=== PATIENT | female | born 1945 | race Caucasian/White ===

== ENCOUNTER 2017-02-16 23:22 | Inpatient (IN) | payer OTHER, MEDICAID ==
[~2017-02-16] VITALS: Ht 157.5 cm; Wt 77.1 kg
--- NOTE | 2017-02-16 23:38 | NUR ---
PT BIB GRANDDAUGHTER FOR C/O HEADACHE, NAUSEA AND HBP.
[2017-02-17] VITALS (8 sets, daily range): BP systolic 133–181; BP diastolic 65–93
--- NOTE | 2017-02-17 00:32 | NUR ---
PT MEDICATED PER MD ORDERS FOR PAIN VERIFIED THAT PT HAS RIDE HOME AT BEDSIDE PRIOR TO ADMIN OF FENTANYL
[2017-02-17 00:41] LABS: BASOPHIL % 0.2 % (0-2); PLATELET COUNT 197 x10^3mcL (130-400); RED CELL DISTRIBUTION WIDTH 13.5 % (11.5-14.5)
[2017-02-17 00:46] LABS: CALCIUM 9.7 mg/dL (8.5-10.1); CARBON DIOXIDE 25.3 mmol/L (21-32); CHLORIDE SERUM 100 mmol/L (98-107); CREATININE SERUM 0.8 mg/dL (0.6-1.0); GLUCOSE SERUM 169 mg/dL (74-106); POTASSIUM SERUM 3.9 mmol/L (3.5-5.1); SODIUM SERUM 135 mmol/L (136-145)
--- NOTE | 2017-02-17 00:48 | NUR ---
PT TAKEN TO CT SCAN
[2017-02-17 00:51] LABS: ALBUMIN 3.1 g/dL (3.4-5.0); ALKALINE PHOSPHATASE 86 U/L (46-116); ALT/SGPT 31 U/L (14-59); AST/SGOT 14 U/L (15-37); BILIRUBIN TOTAL 0.4 mg/dL (0.20-1.00); CHOLESTEROL 247 mg/dL (<200); HDL CHOLESTEROL 32 mg/dL (40-60); MAGNESIUM 1.6 mg/dL (1.8-2.4); TOTAL PROTEIN, SERUM 6.3 g/dL (6.4-8.2)
--- NOTE | 2017-02-17 00:52 | NUR ---
PT BACK FROM CT
--- NOTE | 2017-02-17 00:54 | NUR ---
PT RESTING, REPORTS PAIN HAS DECREASED S/P BEING MEDICATED. PT IS AAOX4, BREATHING EVEN AND UNLABORED. PT IN NO ACUTE DISSTRESS.
--- NOTE | 2017-02-17 01:16 | NUR ---
DR. QUEZADA REQUESTED PT'S PRIMARY CARE DOCTOR'S NAME. PER DR. LUCILLE TANNER [phone]
--- NOTE | 2017-02-17 01:52 | NUR ---
REPORT GIVEN TO MERY LEBRON, TO ASSUME CARE POST TRANSFER
[2017-02-17 02:44] LABS: AMYLASE 41 U/L (25-115); CHOLESTEROL 244 mg/dL (<200); CHOLESTEROL/HDL RATIO 7.4; HDL CHOLESTEROL 33 mg/dL (40-60); LIPASE 186 IU/L (73-393); PHOSPHOROUS 4.2 mg/dL (2.5-4.9); TRIGLYCERIDES 884 mg/dL (<150)
--- NOTE | 2017-02-17 02:45 | NUR ---
RECEIVED FROM ER DEPT VIA [facility] ACCOMAPNIED BY ER STAFFS WITH THE CHIEF COMPLAINTS OF NAUSEA/INTERMITTENT HEADACHE DUE HIGH BLOOD PRESSURE. PLACED COMFORTABLY IN BED. ROUTINE ADMISSION CARE RENDERED. VITAL SIGNS TAKEN AND RECORDED. GC=692/88, DR CHAPARRO MADE AWARE, MADE ORDERS AWAITNG FOR PAHRMACY TO VERIFY ,PT C/O HEADACHE ON SCALE 2/10./BEARABLE AT THIS TIME. ON TELE #38 NSR AT 78/MIN. DENEIS ANY CHEST PAIN AT THIS TIME.
[2017-02-17 03:00] LABS: FREE T4 1.14 ng/dL (0.76-1.46); FREE THYROXINE INDEX 3.6 ug/dL (1.4-4.5); T4(THYROXINE) 10.3 ug/dL (4.7-13.3)
[2017-02-17] MEDS ORDERED: ATENOLOL50 MG PO (03:21)
[2017-02-17] MEDS ORDERED: LOSARTAN POTAS100 M1 PO (03:21)
[2017-02-17] MEDS ORDERED: GOOD SENSE ASPI81 M3 PO (03:22)
--- NOTE | 2017-02-17 03:25 | NUR ---
VX=798/88 COZAR 100MG GIVEN PO ORDERED BY DR CHAPARRO. CHELY HUDSON BP AFTER 1HR.
[2017-02-17 04:31] LABS: T3 TOTAL 1.82 ng/mL
[2017-02-17 04:48] LABS: microscopic required? YES; urine erythrocyte TRACE (NEGATIVE)
--- NOTE | 2017-02-17 04:50 | NUR ---
BP RECHECKED 148/65, PT APPARENTLY RESTING , EYES CLSOED BUT AROUSABLE TO VERBAL STIMULI. CJ=720HB/DL, REFUSED HRI COVERAGE, PT STATED NEVER RECIEVED INSULIN. AND PT STATED, NO APPETITE TO EAT AT THIS TIME. WILL CONTINUE TO MONITOR.
--- NOTE | 2017-02-17 07:30 | NUR ---
REASSESSMENT DONE. AWAKE, ORIENTED x4. COOPERATIVE OF CARE. DENIES HAEDACHE, DIZZINESS AT MOMENT. ABLE TO LET NEEDS KNOWN. IV INFUSING WELL TO LAC #20 NS 100ML/HR. BED IN LOWEST POSITION, CALL LIGHT WITHIN REACH.
[2017-02-17 08:48] LABS: BASOPHIL % 0.4 % (0-2); PLATELET COUNT 175 x10^3mcL (130-400); RED CELL DISTRIBUTION WIDTH 13.5 % (11.5-14.5)
[2017-02-17 08:57] LABS: CALCIUM 9.1 mg/dL (8.5-10.1); CARBON DIOXIDE 28.4 mmol/L (21-32); CHLORIDE SERUM 104 mmol/L (98-107); CREATININE SERUM 0.8 mg/dL (0.6-1.0); GLUCOSE SERUM 187 mg/dL (74-106); MAGNESIUM 1.6 mg/dL (1.8-2.4); POTASSIUM SERUM 3.8 mmol/L (3.5-5.1); SODIUM SERUM 139 mmol/L (136-145)
--- NOTE | 2017-02-17 12:30 | NUR ---
BLOOD GLUCOSE [address] JIMENEZ. PT NPO FOR US RENAL.
--- NOTE | 2017-02-17 14:45 | NUR ---
PT C/O HEADACHE 4/10 BP: 173/93, HR: 82 MEDICATED PER EMAR, PT TOLERATED WELL. POST MEDICATION ADMINISTRATION PT STATES HEADACHE: 0/10 BP: 133/82 HR:71 CALL LIGHT WITHIN REACH. WILL CONTINUE TO MONITOR.
--- NOTE | 2017-02-17 17:15 | NUR ---
PASSED AFTERNOON MEDS. PT TOLERATED WELL. PT DENIES ANY HEADACHE, DIZZINESS. IV PATENT AND INFUSING WELL. CALL LIGHT WITHIN REACH.
--- NOTE | 2017-02-17 19:05 | NUR ---
AOX4. BULGARIAN SPEAKING. FAMILY AT BEDSIDE. TELE #29, NSR. LUNGS CLEAR AND UNLABORED, ON RA. RADIAL AND PEDAL PULSES PALPABLE, NO EDEMA. BOWEL SOUNDS ACTIVE. SKIN INTACT. DENIES HEADACHE/NAUSEA/DIZZINESS. NS @ 80 ML/HR TO LEFT AC, NO REDNESS OR SWELLING. BED IN LOW POSITION, CALL LIGHT IN REACH. INSTRUCTED TO CALL FOR ASSISTANCE.
--- NOTE | 2017-02-18 00:42 | NUR ---
BREATHING EVEN AND UNLABORED, NO ACUTE DISTRESS NOTED. WILL CONTINUE TO MONITOR.
[2017-02-18 05:40] VITALS: BP 134/63
[2017-02-18 06:03] LABS: BASOPHIL % 0.4 % (0-2); PLATELET COUNT 155 x10^3mcL (130-400); RED CELL DISTRIBUTION WIDTH 13.4 % (11.5-14.5)
--- NOTE | 2017-02-18 06:06 | NUR ---
PT. REFUSED 0630 INSULIN COVERAGE, ACCU CHECK 177. OKAY PER DR. JIMENEZ. NO ACUTE CHANGES DURING SHIFT. WILL CONTINUE TO MONITOR.
[2017-02-18 06:18] LABS: CALCIUM 8.3 mg/dL (8.5-10.1); CHLORIDE SERUM 106 mmol/L (98-107); CREATININE SERUM 0.9 mg/dL (0.6-1.0); GLUCOSE SERUM 161 mg/dL (74-106); MAGNESIUM 1.5 mg/dL (1.8-2.4); POTASSIUM SERUM 4.4 mmol/L (3.5-5.1); SODIUM SERUM 140 mmol/L (136-145)
--- NOTE | 2017-02-18 07:10 | NUR ---
RECEIVED Pt. AAOX4 DENIES QUILES/DIZZINESS, RESPIRATIONS EVEN AND UNLABORED RA. NO DISTRESS NOTED. DENIES PAIN/DISCOMFORT.TELE IN PLACE HR 68, IVF RUNNING TO IV LEFT AC PATENT AND INTACT. BED LOW/LOCKED. CALL LIGHT IN REACH.
--- NOTE | 2017-02-18 08:58 | NUR ---
DR. JIMENEZ NOTIFIED MAGNESIUM 1.5
[2017-02-18 09:02] VITALS: BP 140/56
[2017-02-18 09:11] VITALS: BP 140/56
[2017-02-18] MEDS ORDERED: LIPI10 PO (11:58)
[2017-02-18] MEDS ORDERED: ATENOLOL50 MG PO (11:58)
[2017-02-18] MEDS ORDERED: METFORMIN HCL1000 MG PO (11:59)
[2017-02-18] MEDS ORDERED: LAC PO (11:59)
[2017-02-18] MEDS ORDERED: LEVAQUIN750 MG PO (12:00)
[2017-02-18] MEDS ORDERED: GEMFIBROZIL600 MG PO (12:00)
--- NOTE | 2017-02-18 12:10 | NUR ---
Nutrition Note Nutition Consult: Diabetes Education Dx:Accelerated hypertension and UTI PMHx:HTN Ht:62in, 5'2". Wt:170#, 77.11kg BMI:31.1kg/m2 (obesity, class I) Labs: (02/18) BH, Ca:8.3L, M.5L, (02/17) TH, Chol:247H, HDL:32L, A1c:7.6H, Current Diet Order:[facility] PO intakes: (02/17) B:75% D:70% Skin:intact Artie: 21 Pt found with hypertensive urgency 198/104 and disorder of ANS secondary to hypertensive urgency vs. dehydration. Ct of head was negative for any intracranial abnormality, per H&P. Per progress note 02/17, pt reports to feeling much better since admission but still endorses a headache. Pt states her elevated BP is due to recent unhealthy diet of high salt intake. During visit, observed pt laying in bed with her two grandson's at bedside who translated. Pt reports to good appetite with no c/o N/V/D/C. Pt just found out she was diagnosed with diabetes today. Provided diabetic diet education handout and flyer for outpatient diabetes class. Educated pt and family on portion control, including fiber and protein with meals to help stabalize blood sugar and what foods to eat and avoid. Pt and family verbalized understanding. Review indicates pt is a moderate risk pritority at this time. RD to follow up per nutrition care policy and standards. Please contact RD should nutrition concerns arise earlier than expected follow up date. 02/21-
--- NOTE | 2017-02-18 13:35 | NUR ---
Pt. AAOX4 ALL DISCHARGE AND RX INSTRUCTIONS EXPLAINED AND ALSO INSTRUCTED TO FOLLOW UP WITH DR. CIFUENTES 02/22/17, Pt. AND Pt. GRANDTERRY HARMON VERBALIZED UNDERSTANDING. RESPIRATIONS EVEN AND UNLABORED RA DENIES PAIN/DISCOMFORT NO DISTRESS NOTED. TELE RETURNED DENIES CHEST PAIN/PRESSURE. IV LEFT AC REMOVED WITH CATH INTACT NO BLEEDING NOTED. Pt. LEFT WITH ALL BELONGINGS.
--- NOTE | 2017-02-18 14:47 | NUR ---
CANCELLATION,RCV'D FOR ECHO
[2017-02-19] MEDS ORDERED: CEF250 PO (14:40)
[2017-02-19] MEDS ORDERED: CEFTIN500 MG PO (14:43)
== END 2017-02-18 13:43 | disposition home or self-care (01) | DRG 690 ==
LOC: ED 23:22 → DU 02-17 01:19
PROVIDERS: Emergency Medicine; ADMIT Family Medicine
DX: N39.0 Urinary tract infection, site not specified (principal); D68.69 Other thrombophilia; E87.1 Hypo-osmolality and hyponatremia; I16.0 Hypertensive urgency; E11.65 Type 2 diabetes mellitus with hyperglycemia; E86.0 Dehydration; E83.42 Hypomagnesemia; E78.5 Hyperlipidemia, unspecified; Z79.82 Long term (current) use of aspirin; Z68.31 Body mass index [BMI] 31.0-31.9, adult; Z79.84 Long term (current) use of oral hypoglycemic drugs
CPT/HCPCS: 82962; 83880; 84439; J0696; J2405; J3010; J3475; J7030; Q0092

== ENCOUNTER 2017-12-04 12:13 | Emergency (ER) | payer OTHER, MEDICAID ==
[~2017-12-04] VITALS: Ht 160 cm; Wt 75.3 kg
[~2017-12-04 12:13] MED LIST: ATENOLOL50 MG PO; CEF250 PO; CEFTIN500 MG PO; GEMFIBROZIL600 MG PO; GOOD SENSE ASPI81 M3 PO; LAC PO; LEVAQUIN750 MG PO; LIPI10 PO; LOSARTAN POTAS100 M1 PO; METFORMIN HCL1000 MG PO
[2017-12-04 12:18] VITALS: Ht 160 cm; Wt 75.3 kg
[2017-12-04 13:07] LABS: BASOPHIL % 0.4 % (0-2); PLATELET COUNT 292 x10^3mcL (130-400); RED CELL DISTRIBUTION WIDTH 12.9 % (11.5-14.5)
[2017-12-04 13:22] LABS: CALCIUM 9.5 mg/dL (8.5-10.1); CARBON DIOXIDE 23.1 mmol/L (21-32); CHLORIDE SERUM 104 mmol/L (98-107); CREATININE SERUM 1.1 mg/dL (0.6-1.0); GLUCOSE SERUM 111 mg/dL (74-106); POTASSIUM SERUM 4.9 mmol/L (3.5-5.1); SODIUM SERUM 139 mmol/L (136-145)
[2017-12-04 13:26] LABS: ALBUMIN 3.6 g/dL (3.4-5.0); ALKALINE PHOSPHATASE 104 U/L (46-116); ALT/SGPT 22 U/L (14-59); AST/SGOT 15 U/L (15-37); BILIRUBIN TOTAL 0.29 mg/dL (0.20-1.00); CHOLESTEROL 167 mg/dL (<200); HDL CHOLESTEROL 43 mg/dL (40-60); TOTAL PROTEIN, SERUM 7.3 g/dL (6.4-8.2)
[2017-12-04 14:21] VITALS: BP 129/88
== END 2017-12-04 14:21 | disposition home or self-care (01) ==
LOC: ED 12:13
PROVIDERS: Emergency Medicine
DX: K21.9 Gastro-esophageal reflux disease without esophagitis (principal); R07.89 Other chest pain; I10 Essential (primary) hypertension
CPT/HCPCS: 36415; 83880; Q0092

== ENCOUNTER 2017-12-29 09:31 | Inpatient (IN) | payer OTHER, MEDICAID ==
[~2017-12-29] VITALS: Ht 157.5 cm; Wt 74.0 kg
[2017-12-29 09:40] VITALS: Ht 157.5 cm; Wt 74.0 kg
[2017-12-29 10:09] LABS: BASOPHIL % 0.2 % (0-2); CALCIUM 9.4 mg/dL (8.5-10.1); CARBON DIOXIDE 28.8 mmol/L (21-32); CHLORIDE SERUM 99 mmol/L (98-107); CREATININE SERUM 1.2 mg/dL (0.6-1.0); GLUCOSE SERUM 140 mg/dL (74-106); PLATELET COUNT 225 x10^3mcL (130-400); POTASSIUM SERUM 3.8 mmol/L (3.5-5.1); RED CELL DISTRIBUTION WIDTH 12.7 % (11.5-14.5); SODIUM SERUM 133 mmol/L (136-145)
[2017-12-29 10:13] LABS: ALBUMIN 3.7 g/dL (3.4-5.0); ALKALINE PHOSPHATASE 94 U/L (46-116); ALT/SGPT 22 U/L (14-59); AMYLASE 36 U/L (25-115); AST/SGOT 17 U/L (15-37); BILIRUBIN TOTAL 0.81 mg/dL (0.20-1.00); LIPASE 162 IU/L (73-393); TOTAL PROTEIN, SERUM 7.4 g/dL (6.4-8.2)
[2017-12-29] MEDS ORDERED: ATENOLOL25 MG PO (12:17)
[2017-12-29] MEDS ORDERED: PEPCID20 MG PO (12:17)
[2017-12-29] MEDS ORDERED: HYDROCHLOROTHIA25 MG PO (12:18)
[2017-12-29] MEDS ORDERED: METFORMIN HYDR500 M1 PO (12:18)
[2017-12-29 12:27] LABS: MAGNESIUM 1.7 mg/dL (1.8-2.4); PHOSPHOROUS 2.8 mg/dL (2.5-4.9)
[2017-12-29 12:50] LABS: T3 TOTAL 1.23 ng/mL
[2017-12-29 12:57] LABS: FREE T4 1.07 ng/dL (0.76-1.46); FREE THYROXINE INDEX 2.2 ug/dL (1.4-4.5); T4(THYROXINE) 8.3 ug/dL (4.7-13.3)
[2017-12-29 13:11] VITALS: BP 134/79
[2017-12-29 16:53] VITALS: BP 156/91
[2017-12-29 19:12] LABS: UA SPECIFIC GRAVITY 1.015 (1.005-1.035); microscopic required? YES; urine erythrocyte 1+ (NEGATIVE)
[2017-12-29 19:20] LABS: AMPHETAMINE QUAL UR NONE DETECTED (See below)
[2017-12-29 21:59] VITALS: BP 146/91
[2017-12-30 05:25] VITALS: BP 158/90
[2017-12-30 07:21] LABS: BASOPHIL % 0.1 % (0-2); PLATELET COUNT 185 x10^3mcL (130-400); RED CELL DISTRIBUTION WIDTH 12.8 % (11.5-14.5)
[2017-12-30 07:51] LABS: CALCIUM 9.1 mg/dL (8.5-10.1); CARBON DIOXIDE 25.5 mmol/L (21-32); CHLORIDE SERUM 100 mmol/L (98-107); GLUCOSE SERUM 143 mg/dL (74-106); MAGNESIUM 2.5 mg/dL (1.8-2.4); PHOSPHOROUS 3.1 mg/dL (2.5-4.9); POTASSIUM SERUM 3.8 mmol/L (3.5-5.1); SODIUM SERUM 135 mmol/L (136-145)
[2017-12-30 09:42] VITALS: BP 112/75
[2017-12-30 13:49] VITALS: BP 119/70
[2017-12-30 17:49] VITALS: BP 125/71
[2017-12-30 20:10] VITALS: BP 104/71
[2017-12-31] VITALS (9 sets, daily range): BP systolic 99–174; BP diastolic 49–139
[2017-12-31 05:37] LABS: CALCIUM 8.3 mg/dL (8.5-10.1); CARBON DIOXIDE 24.7 mmol/L (21-32); CHLORIDE SERUM 104 mmol/L (98-107); CREATININE SERUM 1.2 mg/dL (0.6-1.0); GLUCOSE SERUM 132 mg/dL (74-106); PHOSPHOROUS 2.6 mg/dL (2.5-4.9); POTASSIUM SERUM 3.5 mmol/L (3.5-5.1); SODIUM SERUM 137 mmol/L (136-145)
[2017-12-31 05:41] LABS: PLATELET COUNT 172 x10^3mcL (130-400); RED CELL DISTRIBUTION WIDTH 13.1 % (11.5-14.5)
[2017-12-31 06:29] LABS: BASOPHIL % 0 % (0-2)
[2018-01-01] VITALS (8 sets, daily range): BP systolic 78–119; BP diastolic 48–81
[2018-01-01 05:58] LABS: PLATELET COUNT 134 x10^3mcL (130-400); RED CELL DISTRIBUTION WIDTH 13.4 % (11.5-14.5)
[2018-01-01 06:05] LABS: CALCIUM 7.9 mg/dL (8.5-10.1); CARBON DIOXIDE 23.2 mmol/L (21-32); CHLORIDE SERUM 105 mmol/L (98-107); CREATININE SERUM 2.1 mg/dL (0.6-1.0); GLUCOSE SERUM 103 mg/dL (74-106); MAGNESIUM 1.6 mg/dL (1.8-2.4); PHOSPHOROUS 3.8 mg/dL (2.5-4.9); POTASSIUM SERUM 3.3 mmol/L (3.5-5.1); SODIUM SERUM 138 mmol/L (136-145)
[2018-01-01 09:54] LABS: BAND NEUTROPHIL 15 % (0-10); METAMYELOCTE 5 % (0-2); MONOCYTE 5 % (0-7); SEGMENTED NEUTROPHILS 71 % (37-75)
[2018-01-01 09:55] LABS: PLATELET MORPHOLOGY LARGE PLATELET SEEN; rbc morphology (normal/abnorm) NORMAL (NORMAL)
[2018-01-01 12:48] LABS: PLATELET COUNT 139 x10^3mcL (130-400); RED CELL DISTRIBUTION WIDTH 13.6 % (11.5-14.5)
[2018-01-01 13:28] LABS: BAND NEUTROPHIL 18 % (0-10); BASOPHIL 0 % (0-2); METAMYELOCTE 4 % (0-2); SEGMENTED NEUTROPHILS 71 % (37-75); rbc morphology (normal/abnorm) NORMAL (NORMAL)
[2018-01-01 13:29] LABS: PLATELET MORPHOLOGY GIANT PLATELET SEEN
[2018-01-02 05:40] LABS: PLATELET COUNT 148 x10^3mcL (130-400); RED CELL DISTRIBUTION WIDTH 13.6 % (11.5-14.5)
[2018-01-02 05:58] LABS: CALCIUM 7.9 mg/dL (8.5-10.1); CARBON DIOXIDE 19.9 mmol/L (21-32); CHLORIDE SERUM 109 mmol/L (98-107); CREATININE SERUM 1.6 mg/dL (0.6-1.0); GLUCOSE SERUM 164 mg/dL (74-106); MAGNESIUM 1.8 mg/dL (1.8-2.4); PHOSPHOROUS 3.3 mg/dL (2.5-4.9); POTASSIUM SERUM 4.3 mmol/L (3.5-5.1); SODIUM SERUM 140 mmol/L (136-145)
[2018-01-02 07:08] LABS: BAND NEUTROPHIL 9 % (0-10); BASOPHIL 0 % (0-2); MONOCYTE 2 % (0-7); SEGMENTED NEUTROPHILS 86 % (37-75)
[2018-01-02 07:10] LABS: PLATELET MORPHOLOGY PLATELETS NORMAL; rbc morphology (normal/abnorm) NORMAL (NORMAL)
[2018-01-02 08:27] VITALS: BP 101/56
[2018-01-02 12:26] VITALS: BP 112/59
[2018-01-02 16:33] VITALS: BP 121/68
[2018-01-02 21:19] VITALS: BP 120/75
[2018-01-03] VITALS (7 sets, daily range): BP systolic 103–139; BP diastolic 60–85
[2018-01-03 07:32] LABS: PLATELET COUNT 168 x10^3mcL (130-400); RED CELL DISTRIBUTION WIDTH 13.5 % (11.5-14.5)
[2018-01-03 07:37] LABS: CALCIUM 8.2 mg/dL (8.5-10.1); CARBON DIOXIDE 22.1 mmol/L (21-32); CHLORIDE SERUM 111 mmol/L (98-107); CREATININE SERUM 1.4 mg/dL (0.6-1.0); GLUCOSE SERUM 138 mg/dL (74-106); PHOSPHOROUS 2.5 mg/dL (2.5-4.9); POTASSIUM SERUM 3.4 mmol/L (3.5-5.1); SODIUM SERUM 142 mmol/L (136-145)
[2018-01-03 10:23] LABS: BAND NEUTROPHIL 8 % (0-10); BASOPHIL 0 % (0-2); MONOCYTE 4 % (0-7); SEGMENTED NEUTROPHILS 83 % (37-75)
[2018-01-03 10:25] LABS: PLATELET MORPHOLOGY PLATELETS NORMAL; rbc morphology (normal/abnorm) ABNORMAL (NORMAL)
[2018-01-04 04:56] VITALS: BP 139/87
[2018-01-04 05:11] VITALS: BP 139/87
[2018-01-04 06:33] LABS: PLATELET COUNT 191 x10^3mcL (130-400); RED CELL DISTRIBUTION WIDTH 13.8 % (11.5-14.5)
[2018-01-04 06:39] LABS: CALCIUM 8.6 mg/dL (8.5-10.1); CARBON DIOXIDE 23.5 mmol/L (21-32); CHLORIDE SERUM 109 mmol/L (98-107); CREATININE SERUM 1.1 mg/dL (0.6-1.0); GLUCOSE SERUM 126 mg/dL (74-106); MAGNESIUM 1.5 mg/dL (1.8-2.4); PHOSPHOROUS 2.2 mg/dL (2.5-4.9); POTASSIUM SERUM 3.6 mmol/L (3.5-5.1); SODIUM SERUM 140 mmol/L (136-145)
[2018-01-04 07:43] LABS: BAND NEUTROPHIL 2 % (0-10); BASOPHIL 0 % (0-2); MONOCYTE 3 % (0-7); SEGMENTED NEUTROPHILS 88 % (37-75)
[2018-01-04 07:45] LABS: PLATELET MORPHOLOGY PLATELETS DECREASED; rbc morphology (normal/abnorm) ABNORMAL (NORMAL)
[2018-01-04 09:01] VITALS: BP 147/62
[2018-01-04 12:39] VITALS: BP 153/87
[2018-01-04 16:24] VITALS: BP 148/73
[2018-01-04 21:45] VITALS: BP 150/82
[2018-01-05 05:59] VITALS: BP 151/82
[2018-01-05 06:16] LABS: CALCIUM 8.4 mg/dL (8.5-10.1); CARBON DIOXIDE 25.6 mmol/L (21-32); CHLORIDE SERUM 106 mmol/L (98-107); CREATININE SERUM 0.9 mg/dL (0.6-1.0); GLUCOSE SERUM 123 mg/dL (74-106); MAGNESIUM 1.7 mg/dL (1.8-2.4); PHOSPHOROUS 2.9 mg/dL (2.5-4.9); POTASSIUM SERUM 3.7 mmol/L (3.5-5.1); SODIUM SERUM 140 mmol/L (136-145)
[2018-01-05 06:18] LABS: PLATELET COUNT 235 x10^3mcL (130-400)
[2018-01-05 08:29] VITALS: BP 141/84
[2018-01-05 10:26] LABS: ATYPICAL LYMPH 1 %; BAND NEUTROPHIL 3 % (0-10); BASOPHIL 0 % (0-2); MONOCYTE 14 % (0-7); SEGMENTED NEUTROPHILS 72 % (37-75)
[2018-01-05 10:28] LABS: PLATELET MORPHOLOGY PLATELETS NORMAL; rbc morphology (normal/abnorm) ABNORMAL (NORMAL)
[2018-01-05 12:06] VITALS: BP 139/89
[2018-01-05 16:09] VITALS: BP 132/79
[2018-01-05 20:55] VITALS: BP 122/67
[2018-01-06 05:40] VITALS: BP 108/69
[2018-01-06 05:51] LABS: PLATELET COUNT 299 x10^3mcL (130-400)
[2018-01-06 06:24] LABS: ALKALINE PHOSPHATASE 221 U/L (46-116); ALT/SGPT 46 U/L (14-59); AST/SGOT 44 U/L (15-37); BILIRUBIN DIRECT 0.47 mg/dL (0.0-0.2); BILIRUBIN TOTAL 0.8 mg/dL (0.20-1.00); CALCIUM 8.1 mg/dL (8.5-10.1); CARBON DIOXIDE 25.2 mmol/L (21-32); CHLORIDE SERUM 104 mmol/L (98-107); CREATININE SERUM 0.8 mg/dL (0.6-1.0); GLUCOSE SERUM 129 mg/dL (74-106); MAGNESIUM 1.6 mg/dL (1.8-2.4); PHOSPHOROUS 3.1 mg/dL (2.5-4.9); POTASSIUM SERUM 3.5 mmol/L (3.5-5.1); SODIUM SERUM 138 mmol/L (136-145)
[2018-01-06 06:39] LABS: ALBUMIN 1.8 g/dL (3.4-5.0); TOTAL PROTEIN, SERUM 5.5 g/dL (6.4-8.2)
[2018-01-06 08:21] VITALS: BP 130/69; BP 142/85
[2018-01-06 10:36] LABS: BAND NEUTROPHIL 9 % (0-10); BASOPHIL 0 % (0-2); METAMYELOCTE 2 % (0-2); MONOCYTE 8 % (0-7); MYELOCYTE 3 % (0-2); PLATELET MORPHOLOGY PLATELETS NORMAL; SEGMENTED NEUTROPHILS 65 % (37-75); rbc morphology (normal/abnorm) ABNORMAL (NORMAL)
[2018-01-06 13:32] VITALS: BP 145/68
[2018-01-06 17:39] VITALS: BP 114/63
[2018-01-06 20:29] VITALS: BP 141/72
[2018-01-07 05:23] VITALS: BP 126/70
[2018-01-07 05:45] LABS: PLATELET COUNT 389 x10^3mcL (130-400); RED CELL DISTRIBUTION WIDTH 13.6 % (11.5-14.5)
[2018-01-07 06:21] LABS: ALKALINE PHOSPHATASE 205 U/L (46-116); ALT/SGPT 39 U/L (14-59); AST/SGOT 38 U/L (15-37); BILIRUBIN TOTAL 1.04 mg/dL (0.20-1.00); CALCIUM 8.3 mg/dL (8.5-10.1); CARBON DIOXIDE 25.8 mmol/L (21-32); CHLORIDE SERUM 102 mmol/L (98-107); CREATININE SERUM 0.9 mg/dL (0.6-1.0); GLUCOSE SERUM 122 mg/dL (74-106); MAGNESIUM 1.6 mg/dL (1.8-2.4); PHOSPHOROUS 2.6 mg/dL (2.5-4.9); POTASSIUM SERUM 3.3 mmol/L (3.5-5.1); SODIUM SERUM 136 mmol/L (136-145); TOTAL PROTEIN, SERUM 6.2 g/dL (6.4-8.2)
[2018-01-07 06:34] LABS: ALBUMIN 1.8 g/dL (3.4-5.0)
[2018-01-07 08:10] LABS: BAND NEUTROPHIL 10 % (0-10); BASOPHIL 0 % (0-2); METAMYELOCTE 2 % (0-2); MONOCYTE 7 % (0-7); MYELOCYTE 2 % (0-2); PLATELET MORPHOLOGY PLATELETS NORMAL; SEGMENTED NEUTROPHILS 68 % (37-75); rbc morphology (normal/abnorm) ABNORMAL (NORMAL)
[2018-01-07 09:42] VITALS: BP 110/60
[2018-01-07 13:56] VITALS: BP 116/62
[2018-01-07 17:45] VITALS: BP 127/73
[2018-01-07 22:18] VITALS: BP 130/72
[2018-01-08 05:52] VITALS: BP 103/63
[2018-01-08 07:03] LABS: RED CELL DISTRIBUTION WIDTH 14.1 % (11.5-14.5)
[2018-01-08 07:16] LABS: PLATELET COUNT 455 x10^3mcL (130-400)
[2018-01-08 07:23] LABS: ALKALINE PHOSPHATASE 165 U/L (46-116); ALT/SGPT 26 U/L (14-59); AST/SGOT 30 U/L (15-37); BILIRUBIN TOTAL 0.86 mg/dL (0.20-1.00); CALCIUM 7.9 mg/dL (8.5-10.1); CARBON DIOXIDE 23.9 mmol/L (21-32); CHLORIDE SERUM 102 mmol/L (98-107); GLUCOSE SERUM 128 mg/dL (74-106); MAGNESIUM 1.9 mg/dL (1.8-2.4); PHOSPHOROUS 3.5 mg/dL (2.5-4.9); POTASSIUM SERUM 3.5 mmol/L (3.5-5.1); SODIUM SERUM 136 mmol/L (136-145)
[2018-01-08 07:24] LABS: ALBUMIN 1.4 g/dL (3.4-5.0); TOTAL PROTEIN, SERUM 5.2 g/dL (6.4-8.2)
[2018-01-08 08:19] VITALS: BP 103/63
[2018-01-08 08:23] VITALS: BP 110/60
[2018-01-08 09:54] LABS: BAND NEUTROPHIL 11 % (0-10); BASOPHIL 0 % (0-2); METAMYELOCTE 2 % (0-2); MONOCYTE 8 % (0-7); MYELOCYTE 1 % (0-2); SEGMENTED NEUTROPHILS 66 % (37-75)
[2018-01-08 09:56] LABS: rbc morphology (normal/abnorm) ABNORMAL (NORMAL)
[2018-01-08 17:16] VITALS: BP 105/61
[2018-01-08 21:25] VITALS: BP 99/50
[2018-01-09 05:46] VITALS: BP 111/62
[2018-01-09 07:25] LABS: CALCIUM 7.2 mg/dL (8.5-10.1); CARBON DIOXIDE 24.7 mmol/L (21-32); CHLORIDE SERUM 104 mmol/L (98-107); GLUCOSE SERUM 133 mg/dL (74-106); POTASSIUM SERUM 3.4 mmol/L (3.5-5.1); SODIUM SERUM 140 mmol/L (136-145)
[2018-01-09 07:59] LABS: RED CELL DISTRIBUTION WIDTH 14.1 % (11.5-14.5)
[2018-01-09 08:00] LABS: PLATELET COUNT 442 x10^3mcL (130-400)
[2018-01-09 09:03] VITALS: BP 103/52
[2018-01-09 10:54] LABS: BAND NEUTROPHIL 13 % (0-10); BASOPHIL 0 % (0-2); METAMYELOCTE 2 % (0-2); MONOCYTE 5 % (0-7); MYELOCYTE 2 % (0-2); SEGMENTED NEUTROPHILS 71 % (37-75)
[2018-01-09 10:55] LABS: rbc morphology (normal/abnorm) ABNORMAL (NORMAL)
[2018-01-09 11:04] LABS: ALBUMIN 1.3 g/dL (3.4-5.0); ALKALINE PHOSPHATASE 150 U/L (46-116); ALT/SGPT 21 U/L (14-59); AST/SGOT 20 U/L (15-37); BILIRUBIN TOTAL 0.6 mg/dL (0.20-1.00); CALCIUM 7.6 mg/dL (8.5-10.1); CARBON DIOXIDE 24.5 mmol/L (21-32); CHLORIDE SERUM 105 mmol/L (98-107); GLUCOSE SERUM 127 mg/dL (74-106); POTASSIUM SERUM 3.4 mmol/L (3.5-5.1); SODIUM SERUM 140 mmol/L (136-145); TOTAL PROTEIN, SERUM 5.2 g/dL (6.4-8.2)
[2018-01-09 14:00] VITALS: BP 110/66
[2018-01-09 19:58] LABS: BAND NEUTROPHIL 6 % (0-10); MONOCYTE 5 % (0-7); SEGMENTED NEUTROPHILS 81 % (37-75)
[2018-01-09 19:59] LABS: rbc morphology (normal/abnorm) NORMAL (NORMAL)
[2018-01-09 20:17] LABS: PLATELET MORPHOLOGY PLATELETS INCREASED
[2018-01-09 20:18] LABS: PLATELET COUNT 542 x10^3mcL (130-400)
[2018-01-09 20:53] VITALS: BP 112/62
[2018-01-10 06:16] VITALS: BP 116/59
[2018-01-10 06:53] LABS: CARBON DIOXIDE 24.7 mmol/L (21-32); CHLORIDE SERUM 109 mmol/L (98-107); CREATININE SERUM 1.1 mg/dL (0.6-1.0); GLUCOSE SERUM 96 mg/dL (74-106); POTASSIUM SERUM 4.7 mmol/L (3.5-5.1); SODIUM SERUM 141 mmol/L (136-145)
[2018-01-10 06:57] LABS: RED CELL DISTRIBUTION WIDTH 14.1 % (11.5-14.5)
[2018-01-10 07:04] LABS: PLATELET COUNT 490 x10^3mcL (130-400)
[2018-01-10 08:47] VITALS: BP 99/57
[2018-01-10 10:03] LABS: BAND NEUTROPHIL 16 % (0-10); BASOPHIL 0 % (0-2); METAMYELOCTE 1 % (0-2); MONOCYTE 4 % (0-7); SEGMENTED NEUTROPHILS 74 % (37-75)
[2018-01-10 10:06] LABS: PLATELET MORPHOLOGY LARGE PLATELET SEEN; rbc morphology (normal/abnorm) ABNORMAL (NORMAL); target cell (codocyte) 1+
[2018-01-10 12:09] VITALS: BP 95/60
[2018-01-10 16:26] VITALS: BP 115/66
[2018-01-10 20:57] VITALS: BP 150/79
[2018-01-11 04:54] VITALS: BP 127/72
[2018-01-11 06:29] LABS: CALCIUM 7.8 mg/dL (8.5-10.1); CARBON DIOXIDE 22.8 mmol/L (21-32); CHLORIDE SERUM 107 mmol/L (98-107); CREATININE SERUM 0.9 mg/dL (0.6-1.0); GLUCOSE SERUM 128 mg/dL (74-106); MAGNESIUM 1.9 mg/dL (1.8-2.4); PHOSPHOROUS 2.6 mg/dL (2.5-4.9); POTASSIUM SERUM 4.6 mmol/L (3.5-5.1); SODIUM SERUM 137 mmol/L (136-145)
[2018-01-11 07:06] LABS: PLATELET COUNT 557 x10^3mcL (130-400); RED CELL DISTRIBUTION WIDTH 15.2 % (11.5-14.5)
[2018-01-11 09:51] VITALS: BP 114/66
[2018-01-11 10:39] LABS: BAND NEUTROPHIL 17 % (0-10); BASOPHIL 0 % (0-2); MONOCYTE 5 % (0-7); MYELOCYTE 1 % (0-2); SEGMENTED NEUTROPHILS 69 % (37-75)
[2018-01-11 10:41] LABS: rbc morphology (normal/abnorm) ABNORMAL (NORMAL); schistocyte (helmet cell) 1+
[2018-01-11 13:39] VITALS: BP 132/71
[2018-01-11 16:19] VITALS: BP 125/76
[2018-01-11 21:25] VITALS: BP 127/70
[2018-01-12 04:56] VITALS: BP 136/80
[2018-01-12 06:28] LABS: BASOPHIL % 0.3 % (0-2)
[2018-01-12 06:37] LABS: RED CELL DISTRIBUTION WIDTH 14.7 % (11.5-14.5)
[2018-01-12 06:38] LABS: PLATELET COUNT 674 x10^3mcL (130-400)
[2018-01-12 06:41] LABS: ALKALINE PHOSPHATASE 243 U/L (46-116); ALT/SGPT 20 U/L (14-59); AST/SGOT 29 U/L (15-37); BILIRUBIN TOTAL 0.44 mg/dL (0.20-1.00); CALCIUM 8.1 mg/dL (8.5-10.1); CARBON DIOXIDE 25.5 mmol/L (21-32); CHLORIDE SERUM 104 mmol/L (98-107); CREATININE SERUM 0.8 mg/dL (0.6-1.0); GLUCOSE SERUM 154 mg/dL (74-106); MAGNESIUM 1.7 mg/dL (1.8-2.4); PHOSPHOROUS 2.3 mg/dL (2.5-4.9); POTASSIUM SERUM 4.3 mmol/L (3.5-5.1); SODIUM SERUM 137 mmol/L (136-145)
[2018-01-12 06:59] LABS: ALBUMIN 1.4 g/dL (3.4-5.0)
[2018-01-12 09:23] VITALS: BP 139/73
[2018-01-12] MEDS ORDERED: INVANZ1 GM IV (11:30)
[2018-01-12 12:41] VITALS: BP 144/85
[2018-01-12 16:54] VITALS: BP 136/70
[2018-01-12 17:58] VITALS: BP 136/70
[2018-01-12 18:01] VITALS: BP 136/70
[2018-01-12] MEDS ORDERED: APAP/HYDROCODON1 T13 PO (19:47)
== END 2018-01-12 19:59 | disposition home health service (06) | DRG 853 ==
LOC: ED 09:31 → DU 11:26 → MU 11:26 → DU 12:54
PROVIDERS: Anesthesiology; Emergency Medicine; Family Medicine; Internal Medicine; Internal Medicine Gastroenterology; Surgery
PROC: 0FT44ZZ Resection of Gallbladder, Percutaneous Endoscopic Approach (ICD-10-PCS; principal; 2018-01-01 08:30)
PROC: 0F798DZ Dilation of Common Bile Duct with Intraluminal Device, Via Natural or Artificial Opening Endoscopic (ICD-10-PCS; 2018-01-04 10:45)
PROC: 0F913ZZ Drainage of Right Lobe Liver, Percutaneous Approach (ICD-10-PCS; 2018-01-09)
PROC: 30233N1 Transfusion of Nonautologous Red Blood Cells into Peripheral Vein, Percutaneous Approach (ICD-10-PCS; 2018-01-09)
DX: A41.9 Sepsis, unspecified organism (principal); E43 Unspecified severe protein-calorie malnutrition; N17.0 Acute kidney failure with tubular necrosis; K75.0 Abscess of liver; K80.01 Calculus of gallbladder with acute cholecystitis with obstruction; E87.1 Hypo-osmolality and hyponatremia; D68.59 Other primary thrombophilia; R65.20 Severe sepsis without septic shock; E86.0 Dehydration; E11.65 Type 2 diabetes mellitus with hyperglycemia; E11.51 Type 2 diabetes mellitus with diabetic peripheral angiopathy without gangrene; K21.9 Gastro-esophageal reflux disease without esophagitis; F43.0 Acute stress reaction; E78.5 Hyperlipidemia, unspecified; I10 Essential (primary) hypertension; Z68.27 Body mass index [BMI] 27.0-27.9, adult; Z79.82 Long term (current) use of aspirin; Z79.84 Long term (current) use of oral hypoglycemic drugs
CPT/HCPCS: 32557; 43260; 78226; 82962; 83880; 84439; 94150; 97110-GP; 97116-GP; 97530-GP; 97535-GP; A9537; C1769; C2625; C9113; J0330; J0690; J0696; J1170; J1610; J1644; J1885; J1940; J2001; J2185; J2250; J2405; J2543; J2704; J2710; J3010; J3475; J3480; J3490; J7030; J7040; J7050; J7120; J7620; P9016; Q0092; Q0162; Q0163; Q9967

== ENCOUNTER 2019-07-16 09:33 | Emergency (ER) | payer OTHER, MEDICAID ==
[~2019-07-16] VITALS: Ht 157.5 cm; Wt 73.5 kg
[~2019-07-16 09:33] MED LIST changes: +APAP/HYDROCODON1 T13 PO; +ATENOLOL25 MG PO; +HYDROCHLOROTHIA25 MG PO; +INVANZ1 GM IV; +METFORMIN HYDR500 M1 PO; +PEPCID20 MG PO
[2019-07-16 10:01] VITALS: BP 135/78; Ht 157.5 cm; Wt 73.5 kg
== END 2019-07-16 11:21 | disposition home or self-care (01) ==
LOC: ED 09:33
DX: H01.001 Unspecified blepharitis right upper eyelid (principal); E11.9 Type 2 diabetes mellitus without complications; I10 Essential (primary) hypertension; E78.00 Pure hypercholesterolemia, unspecified